=== PATIENT | male | born 2000 | race Caucasian/White ===

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

== ENCOUNTER 2019-07-02 22:41 | Emergency (ER) | payer BC, SELFPAY | END 2019-07-02 23:30 | disposition home or self-care (01) | LOC: ERS 22:41 | DX: M25.512 Pain in left shoulder (principal); J45.909 Unspecified asthma, uncomplicated; X50.9XXA Other and unspecified overexertion or strenuous movements or postures, initial encounter; Y99.0 Civilian activity done for income or pay | CPT/HCPCS: 99283 ==

== ENCOUNTER 2019-09-08 22:54 | Emergency (ER) | payer BC | END 2019-09-09 01:00 | disposition home or self-care (01) | LOC: ERS 22:54 | DX: K60.2 Anal fissure, unspecified (principal); J45.909 Unspecified asthma, uncomplicated; F17.220 Nicotine dependence, chewing tobacco, uncomplicated | CPT/HCPCS: 99283 ==

== ENCOUNTER 2019-10-03 20:37 | Emergency (ER) | payer BC, OTHER ==
[2019-10-04 14:51] LABS: SARS-CoV-2 MS2 Positive; SARS-CoV-2 N Gene Negative; SARS-CoV-2 S Gene Negative; SARS-CoV-2 orf1ab Negative
== END 2019-10-03 21:51 | disposition home or self-care (01) ==
LOC: ERS 20:37
DX: R05 Cough (principal); R11.2 Nausea with vomiting, unspecified; R19.7 Diarrhea, unspecified; R06.02 Shortness of breath; Z20.828 Contact with and (suspected) exposure to other viral communicable diseases
CPT/HCPCS: 87635; 99283; U0003

== ENCOUNTER 2019-10-05 20:50 | Emergency (ER) | payer BC, OTHER ==
[2019-10-05] MEDS ORDERED: Dexamethasone 10 MG/ML VIAL ONE (22:03)
--- NOTE | 2019-10-05 23:32 | RAD ---
EXAM: CHEST ONE VIEW HISTORY: Cough and shortness of breath COMPARISON: None FINDINGS: The cardiac silhouette and pulmonary vasculature is within normal limits. The lungs are clear. The os seous structures are intact. IMPRESSION: No acute cardiopulmonary process. Chest radiographs exhibit low sensitivity for subtle groundglass de nsities which can be seen with viral pneumonitis.
== END 2019-10-05 23:08 | disposition home or self-care (01) ==
LOC: ERS 20:50
DX: J06.9 Acute upper respiratory infection, unspecified (principal); Z20.828 Contact with and (suspected) exposure to other viral communicable diseases; J45.909 Unspecified asthma, uncomplicated; F17.220 Nicotine dependence, chewing tobacco, uncomplicated; F17.290 Nicotine dependence, other tobacco product, uncomplicated; Z79.51 Long term (current) use of inhaled steroids
CPT/HCPCS: 71045; J1100